=== PATIENT | male | born 1965 | race Caucasian/White ===

== ENCOUNTER 2023-11-21 13:12 | Outpatient (CLI) | payer OTHER, SELFPAY ==
--- NOTE | ~2023-11-21 | CT_ITS ---
CT Scan of the Chest without Contrast: Clinical Indication: Lung cancer screening, nicotine dependence Technique: Contiguous sections were acquired throughout the chest without intravenous contrast. Dose reduction technique was used on this scan by utilizing automated exposure control and iterative recon struction technique. The dose-length product (DLP) was 128.56 mGy-cm. Findings: There is no evidence of any significant mediastinal, hilar or axillary lymphadenopathy. The mediastin al soft tissues appear normal. There is no evidence of pleural or pericardial effusion. The lungs are clear. No pulmonary nodules or infiltrates are noted. Images through the upper abdomen reveal no abnormalities. Impression: Lung RADS 1: Negative. 12 month follow-up screening CT advised. Reviewed, dictated and finalized at location . Impression: Lung RADS 1: Negative. 12 month follow-up screening CT advised.
== END 2023-11-21 13:13 | disposition home or self-care (01) ==
LOC: ANHIMG 13:13
PROVIDERS: PCP Family Medicine; Visit Provider Family Medicine
DX: Z12.2 Encounter for screening for malignant neoplasm of respiratory organs (principal); Z87.891 Personal history of nicotine dependence
CPT/HCPCS: 71271

== ENCOUNTER 2024-11-23 10:21 | Outpatient (CLI) | payer OTHER, SELFPAY ==
--- NOTE | ~2024-11-23 | CT_ITS ---
CT Scan of the Chest without Contrast: Clinical Indication: Lung cancer screening, nicotine dependence Technique: Contiguous sections were acquired throughout the chest without intravenous contrast. Dose reduction technique was used on this scan by utilizing automated exposure control and iterative recon struction technique. The dose-length product (DLP) was 117.48 mGy-cm. COMPARISON: 11/21/2023 Findings: There is no evidence of any significant mediastinal, hilar or axillary lymphadenopathy. The mediastin al soft tissues appear normal. There is no evidence of pleural or pericardial effusion. The lungs are clear. No pulmonary nodules or infiltrates are noted. Probable mild emphysema. Images through the upper abdomen reveal no abnormalities. Impression: Lung RADS 1: Negative. 12 month follow-up screening CT advised. Reviewed, dictated and finalized at location . Impression: Lung RADS 1: Negative. 12 month follow-up screening CT advised.
--- OUTSIDE RECORDS SUMMARY | 2024-11-23 11:45 | XMS_ITS | Clinical Summary ---
Author Organization [facility] Address [address] [place] [id number] Care Team Providers Care Machine Adjuster Leader Name Role Phone Ashok Black MD Primary Care Provider [phone] Hector Gold MD Unavailable Allergies No known active allergies Medications hydrocodone-ac etaminophen 5-325 MG per tablet Take 1 tablet by mouth every 6 (six) hours as needed. 0 6 Active predniSONE 10 mg tablet Take 1 tablet by mouth see administration instructions. As directed 6 Active VENTOLIN HFA 108 (90 BASE) MCG/ACT inhaler Inhale 2 puffs into the lungs every 4 (four) hours as needed. 0 6 Active VIRTUSSIN A/C 100-10 MG/5ML syrup Take 10 mLs by mouth every 4 (four) hours as needed. 0 6 Active SOTALOL 120 MG tablet TAKE 1 TABLET(120 MG) BY MOUTH TWICE DAILY 180 tablet 7 Active Active Problems Problem Noted Date Diagnosed Date Ventricular tachycardia ([facility]/H[facility]) Overview (03/20/2016): s/p Guidant single chamber ICD in 2013 for secondary prevention Essential hypertension Family History Medical History Relation Comments coronary disease Paternal Grandmother 80's Relation Status Comments Paternal Grandmother Social History Tobacco Use Types Packs/Day Years Used Date Smoking Tobacco: Every Day Smokeless Tobacco: Never Comments:Smokes 2.5 packs pe r week Alcohol Use Standard Drinks/Week Comments Yes 0 (1 standard drink = 0.6 oz pur e alcohol) Occasionally Sex and Gender Information Value Date Recorded Sex Assigned at Not on file Legal Sex Male 2:51 AM CDT Gender Identity Not on file Sexual Orientation Not on file 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 Not on file Not on file Last Filed Vital Signs Vital Sign Reading Time Taken Comments Blood Pressure 146/83 11/22/2019 12:45 AM CDT Pulse 63 11/22/2019 12:45 AM CDT Temperature 36.4 C (97.6 F) 11/22/2019 12:45 AM CDT Respiratory Rate 20 11/22/2019 12:45 AM CDT Oxygen Saturation 97% 11/22/2019 12:45 AM CDT Inhaled Oxygen Concentration - - Weight 79.4 kg (175 lb) 11/22/2019 12:45 AM CDT Height 185.4 cm (6' 1 ) 11/22/2019 12:45 AM CDT Body Mass Index 23.09 11/22/2019 12:45 AM CDT Plan of Treatment Health Maintenance Due Date Last Done Comments Colorectal Cancer Screening Colonoscopy (10 Years) 1965 Annual Physical 1968 Hepatitis C 1983 DTaP, Tdap and Td Vaccines ( 1 - Tdap) 1984 Pneumococcal Vaccine: 50+ Ye ars (1 of 2 - PCV) 1984 Zoster Vaccines (1 of 2) 2015 COVID-19 Vaccine (1 - 2023-2 5 season) 2024 Meningococcal B Vaccine Aged Out No l onger eligible based on patient's age to complete this topic Meningococcal Vaccine Aged Out No titi carlos eligible based on patient's age to complete this topic RSV Immunizations Under 20 Months Aged Out No longer eligible based on patient's age to complete this topic Medical Devices Implanted Type Area Vibrator Operator Device Identifier Shelf Expiration Date Model / Serial / Lot [employer] Icd-04/04/2016 Implanted:04/04 by Enrrique Steele MD (Quantity not on file) ICD [employer] ADDIE [id number] / [id number] / Ventricle Lead-04/08/2013 Implanted:04/08 (Quantity not on file) Lead Implant [employer] ADDIE [id number] / [id number] / Atrial Lead-04/04/2016 Implanted:04/04 by Enrrique Steele MD (Quantity not on file) Lead Implant [email or web address] ADDIE [id number] / [id number] / Insurance [employer] Care Teams Machine Adjuster Leader Relationship Specialty Start Date End Date Ashok Black MD [address] [facility] [address] [place] [address] PCP - General FAMILY PRACTICE 03/05/16 Hector Gold MD [address] [place] [id number] [place] Pinion And Wheel Truer CARDIOVASCULAR DISEASE 03/05/16
--- OUTSIDE RECORDS SUMMARY | 2024-11-23 11:45 | XMS_ITS | Referral Summary ---
Author Organization [facility] [address] Address [address] [place] [address] Care Team Providers Care Landscape Maintenance Internship Name Role Phone Ashok Black MD Primary Care Provider Encounters Date Type Department Care Team Description 10/15/2024 7:15 AM CDT Ancillary Procedure [facility] Cardiology [address] [facility] [address] [place] [phone] ICD (implantable cardioverter-defibril lator), dual, in situ; VT (ventricular tachycardia) (HCC) from Last 3 Months Allergies No known active allergies Medications TRELEGY ELLIPTA 100-62.5-25 mcg blister with device Take 1 puff by mouth daily 2 12/02/2018 Active sotaloL (BETAPACE) 120 mg tablet TAKE 1 TABLET BY MOUTH TWICE A DAY 180 tablet 1 09/03/2024 Active Active Problems Problem Noted Date Diagnosed Date Atrial fibrillation 09/11/2019 COPD (chronic obstructive pulmonary disease) 01/2019 Idiopathic ventricular tachycardia 08/13/2017 Chronic fatigue 08/13/2017 Tobacco abuse 08/13/2017 ICD (implantable cardioverter-defibrillator), du al, in situ 08/13/2017 Overview (08/28/2017): [employer] Dual ICD, Dx; VT DOI 04/04/2016, chronic v-lead 04/[address] Hancock @ [facility]. Latitude remote monitoring Q3 mo, office device checks Q1 yr. Encounter for monitoring sotalol therapy 018 CASTRO (dyspnea on exertion) 08/13/2017 Social History Tobacco Use Types Packs/Day Years Used Date Smoking Tobacco: Every Day Cigarettes Smokeless Tobacco: Never Alcohol Use Standard Drinks/Week Comments Yes 0 (1 standard drink = 0.6 oz pur e alcohol) Sex and Gender Information Value Date Recorded Sex Assigned at Not on file Legal Sex Male 9:39 AM FERN PICKER Gender Identity Not on file Sexual Orientation Not on file Last Filed Vital Signs Vital Sign Reading Time Taken Comments Blood Pressure 114/70 06/15/2024 12:56 PM FERN PICKER Pulse 70 06/15/2024 12:56 PM FERN PICKER Temperature - - Respiratory Rate - - Oxygen Saturation 99% 06/15/2024 12:56 PM FERN PICKER Inhaled Oxygen Concentration - - Weight 84.8 kg (187 lb) 06/15/2024 12:56 PM FERN PICKER Height 185.4 cm (6' 1 ) 06/15/2024 12:56 PM FERN PICKER Body Mass Index 24.67 06/15/2024 12:56 PM FERN PICKER Plan of Treatment Not on file Medical Devices Implanted Type Area Manager Process Device Identifier Shelf Expiration Date Model / Serial / Lot Icd-04/04/2016 Implanted:04/04 (Quantity not on file) ICD Chest [place] [employer] VT INOGE N [id number] / [id number] / CHRONIC V-LEAD 04/2013 Procedures Procedure Name Priority Date/Time Associated Diagnosis Comments DEVICE CHECK - REMOTE Routine 10/15/2024 6:50 AM CDT ICD (implantable cardioverter-defibr illator), dual, in situ VT (ventricular tachycardia) (HCC) from Last 3 Months Results * DEVICE CHECK - REMOTE (10/15/2024 6:50 AM CDT) Anatomical Region Laterality Modality Other Narrative 10/16/2024 7:59 AM CDT [employer] Scientific Dual ICD, Dx; VT DOI 04/04/2016, chronic v-lead 04/[address] Hancock @ [facility]. Latitude remote monitoring Q3 mo, office device checks Q1 yr. Routine DDD ICD Remote. Transmission attached. Battery status Ok, 7.0 years remaining battery life to LEN. Stable Charge time and Shock impedance. Stable lead impedances, pacing, and sensing threshold. Presenting rhythm: AP-VS. AP-76 %, ARCHIVIST MILITARY HISTORY-0 %. (No) AT/AF episodes noted. (No) Ventricular tachy arrhythmia detected since 08/02/2024. Medication: sotalol. Follow up: office device pacemaker/ICD 6 months. Latitude remote 01/20/2025. Jessica Krishnamurthy, RN Caryn Kenny MD CV CARDIAC SERVICES PROCEDURES Final Result from Last 3 Months Insurance [facility] Care Teams Landscape Maintenance Internship Relationship Specialty Start Date End Date Ashok Black MD [address] [facility] [address] [place] [address] PCP - General Family Medicine 07/26/17
--- OUTSIDE RECORDS SUMMARY | 2024-11-23 11:45 | XMS_ITS | Encounter Summary ---
Author Organization [facility] Address [facility] [place] [address] Care Team Providers Care Supervisor Film Processing Name Role Phone Ashok Black MD Primary Care Provider [phone] Hector Gold MD Unavailable Ashok Black MD Primary Care Provider [phone] Encounter Details Date Type Department Care Team (Late st Contact Info) Description 09/08/2015 Abstract [facility] AT [address] [address] Hector Gold MD [address] [place] [id number] Social History Tobacco Use Types Packs/Day Years Used Date Smoking Tobacco: Every Day Comments:Smokes 2.5 packs pe r week Alcohol Use Standard Drinks/Week Comments Yes 0 (1 standard drink = 0.6 oz pur e alcohol) Occasionally Sex and Gender Information Value Date Recorded Sex Assigned at Not on file Legal Sex Male 2:51 AM CDT Gender Identity Not on file Sexual Orientation Not on file 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 Not on file Not on file documented as of this encounter Plan of Treatment Not on file documented as of this encounter Visit Diagnoses Not on filedocumented in this encounter Care Teams Supervisor Film Processing Relationship Specialty Start Date End Date Ashok Black MD [address] [facility] [address] [place] [address] PCP - General FAMILY PRACTICE 03/05/16 Ashok Black MD [address] [facility] [address] [place] [address] PCP - General 04/13/13 03/04/16 Hector Gold MD [facility] [place] [address] [place] [employer] S[employer]er CARDIOVASCULAR DISEASE 03/05/16 documented as of this encounter
--- OUTSIDE RECORDS SUMMARY | 2024-11-23 11:45 | XMS_ITS | Clinical Summary ---
Author Organization [facility] [address] Address [address] [place] [address] Care Team Providers Care Air Dispatcher Name Role Phone Ashok Black MD Primary Care Provider Allergies No known active allergies Medications TRELEGY [...] du al, in situ 08/13/2017 Overview (08/28/2017): [employer] Dual ICD, Dx; VT DOI 04/04/2016, chronic v-lead 04/[address] Hancock @ [facility]. [facility] remote monitoring Q3 mo, office device checks Q1 yr. Encounter for monitoring sotalol therapy 018 CASTRO (dyspnea on exertion) 08/13/2017 Encounters Date Type Department Care Team Description 10/15/2024 7:15 AM CDT Ancillary Procedure [facility] Medical Group Cardiology [address] [facility] [address] [place] [phone] ICD (implantable cardioverter-defibril lator), dual, in situ; VT (ventricular tachycardia) (HCC) from Last 3 Months Surgical History Surgery Date Site/Laterality Comments INSERT / REPLACE / REMOVE PACEMAKER Medical History Medical History Date Comments Tachycardia VT (ventricular tachycardia) (HCC) Atrial fibrillation (HCC) COPD (chronic obstructive pulmonary disease) (HC C) Family History Medical History Relation Name Comments No Known Problems Father No Known Problems Mother Relation Name Status Comments Father Mother Social History Tobacco Use Types Packs/Day Years Used Date Smoking Tobacco: Every Day Cigarettes Smokeless Tobacco: Never Alcohol Use Standard Drinks/Week Comments Yes 0 (1 standard drink = 0.6 oz pur e alcohol) Sex and Gender Information Value Date Recorded Sex Assigned at Not on file Legal Sex Male 9:39 AM SENIOR ADULTS DIRECTOR Gender Identity Not on file Sexual Orientation Not on file Obstetrics History Last Filed Vital Signs Vital Sign Reading Time Taken Comments Blood Pressure 114/70 06/15/2024 12:56 PM SENIOR ADULTS DIRECTOR Pulse 70 06/15/2024 12:56 PM SENIOR ADULTS DIRECTOR Temperature - - Respiratory Rate - - Oxygen Saturation 99% 06/15/2024 12:56 PM SENIOR ADULTS DIRECTOR Inhaled Oxygen Concentration - - Weight 84.8 kg (187 lb) 06/15/2024 12:56 PM SENIOR ADULTS DIRECTOR Height 185.4 cm (6' 1 ) 06/15/2024 12:56 PM SENIOR ADULTS DIRECTOR Body Mass Index 24.67 06/15/2024 12:56 PM SENIOR ADULTS DIRECTOR Plan of Treatment Health Maintenance Due Date Last Done Comments Colon Cancer Screening-Colonoscopy 1965 Depression Screening 1965 Hepatitis C Screening 1965 Prostate Cancer Screening-PSA 1965 DTaP/Tdap/Td Vaccine (1 - Tdap) 1976 Hepatitis B Screening 1983 Regular Well Visit/Exam 18-64 1983 Pneumococcal vaccine <65 (1 of 2 - PCV) 1984 Zoster Vaccine (1 of 2) 2015 Influenza Vaccine (#1) 2024 04/15/2013 Medical Devices Implanted Type Area Adolescent Psychiatrist Device Identifier Shelf Expiration Date Model / Serial / Lot Icd-04/04/2016 Implanted:04/04 (Quantity not on file) ICD Chest [employer] VT INOGE N [id number] / [id number] / CHRONIC V-LEAD 04/2013 Procedures Procedure Name Priority Date/Time Associated Diagnosis Comments DEVICE CHECK - REMOTE Routine 10/15/2024 6:50 AM CDT ICD (implantable cardioverter-defibr illator), dual, in situ VT (ventricular tachycardia) (HCC) from Last 3 Months Results * DEVICE CHECK - REMOTE (10/15/2024 6:50 AM CDT) Anatomical Region Laterality Modality Other Narrative 10/16/2024 7:59 AM CDT [employer] Dual ICD, Dx; VT DOI 04/04/2016, chronic v-lead 04/[address] Hancock @ [facility]. Latitude remote monitoring Q3 mo, office device checks Q1 yr. Routine DDD ICD Remote. Transmission attached. Battery status Ok, 7.0 years remaining battery life to LEN. Stable Charge time and Shock impedance. Stable lead impedances, pacing, and sensing threshold. Presenting rhythm: AP-VS. AP-76 %, DIRECTOR SCHOOL OF NURSING-0 %. (No) AT/AF episodes noted. (No) Ventricular tachy arrhythmia detected since 08/02/2024. Medication: sotalol. Follow up: office device pacemaker/ICD 6 months. Latitude remote 01/20/2025. Jessica Krishnamurthy, SAPNA Caryn Kenny MD CV CARDIAC SERVICES PROCEDURES Final Result from Last 3 Months Insurance [employer] Care Teams Air Dispatcher Relationship Specialty Start Date End Date Ashok Black MD [address] [facility] [address] [place] [address] PCP - General Family Medicine 07/26/17
--- OUTSIDE RECORDS SUMMARY | 2024-11-23 11:45 | XMS_ITS | Encounter Summary ---
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
== END 2024-11-23 10:22 | disposition home or self-care (01) ==
PROVIDERS: PCP Family Medicine; Visit Provider Family Medicine
DX: Z12.2 Encounter for screening for malignant neoplasm of respiratory organs (principal); F17.210 Nicotine dependence, cigarettes, uncomplicated
CPT/HCPCS: 71271